=== PATIENT | male | born 1975 | race Caucasian/White ===

== ENCOUNTER 2021-04-25 13:08 | Emergency (ER) | payer BC, SELFPAY ==
[2021-04-25 13:08] VITALS: BP 171/124; PULSE 77; RESP 18; TEMP 36.7; O2SAT 99; BMI 36.5
--- NOTE | 2021-04-25 13:24 | EDS_ITS ---
HPI History of Present Illness Chief Complaint: General Illness Narrative Narrative: 45-year-old male presenting with fever, chills, cough, body aches x2 days. He has 2 children at home that both tested positive for COVID a few days ago. He thinks he has COVID-19. Patient states he did not get vaccinated because he does not believe in the science of the vaccine and he states that he would not want monoclonal antibodies. He states that the only reason he came to the emergency room was because [employer]. states that he had must have a documented positive COVID test. He states specifically he was told to come to the hospital. Patient does not report severe symptoms and is eating and drinking normally. He is making normal urine and stool. He does not have abdominal pain or chest pain. PFSH PFSH Allergy/AdvReac Type Severity Reaction Status Date / Time No Known Allergies Allergy Verified 04/25/21 13:10 ROS ROS ED Constitutional Constitutional ED: Reports chills and fever(s) Eyes Eyes: Denies blurry vision or diplopia ENT ENT ED: Reports rhinorrhea; Denies sore throat Cardiovascular Cardiovascular: Denies chest pain or palpitations Respiratory/Chest Respiratory/Chest: Reports cough and dyspnea Gastrointestinal Gastrointestinal: Denies abdominal pain, nausea or vomiting Genitourinary Genitourinary ED: Denies dysuria or hematuria Musculoskeletal Musculoskeletal: Reports myalgias; Denies arthralgias or neck pain Integumentary Denies Abrasions or rash Neurologic Neurologic: Reports headache(s); Denies paresthesias or weakness EXAM Physical Exam Const Vital Signs: 04/25/21 13:08 Temperature 98.1 F Temperature Source Temporal Pulse Rate 77 Respiratory Rate 18 Blood Pressure 171/124 H Blood Pressure Mean 139 Pulse Ox 99 Oxygen Delivery Method Room Air Positive well nourished General Appearance ED: NAD; Negative for pallor HEENT Reports moist mucous membranes Negative for trauma Eyes PERRL and EOMs intact bilaterally Neck no lymphadenopathy and supple Resp normal respiratory effort and clear to auscultation bilaterally Cardio regular rate and regular rhythm Neuro oriented x3 and CN's II-XII intact bilaterally Sensorium / Orientation: alert Skin no rashes or lesions noted and no wounds General Skin Exam: Negative for jaundice or pallor MDM MDM MDM Narrative Medical decision making narrative: 45-year-old male unvaccinated for COVID-19 with symptoms of COVID-19. He states he does not believe in the signs of the vaccine and does not want monoclonal antibodies. He states that his job made him come to the emergency room to get tested for COVID-19. I will test him with a send out PCR since he does not want any monoclonal antibody treatment. He does not need this back rapidly. He otherwise has normal vital signs. He is not hypoxic or tachypneic. His pulse ox is 99% on room air. Patient given return precautions and will quarantine the appropriate timeframe at home. Impression: 1. COVID-19 Discharge Plan Triage Chief Complaint: General Illness Other Complaint: Cold Sx ED Provider: Edwin Bravo Dx/Rx/DC Orders Instructions: Coronavirus Disease 2019 (COVID-19): Caring for Yourself or Others Disposition Disposition: Home, Self Care
== END 2021-04-25 13:55 | disposition home or self-care (01) ==
PROVIDERS: Emergency Provider Student in an Organized Health Care Education/Training Program; Visit Provider Student in an Organized Health Care Education/Training Program
DX: U07.1 COVID-19 (principal)
CPT/HCPCS: 87635; 99281; 99282; U0003; U0005

== ENCOUNTER 2021-06-25 23:44 | Emergency (ER) | payer BC, SELFPAY ==
[2021-06-25 23:46] VITALS: BP 180/124; PULSE 70; RESP 16; TEMP 36; O2SAT 100; BMI 37.8
--- NOTE | 2021-06-26 00:13 | EX.ED.UPPERE ---
HPI History of Present Illness Chief Complaint: Upper Extremity Injury Detail of Chief Complaint: Atraumatic right shoulder pain Informant: patient Onset/Context/Timing Onset: Today and Weeks Context: Gradual Onset Timing: Intermittent Quality of Pain: Aching Current Severity: Moderate Maximum Severity: Moderate Associated Symptoms Associated Symptoms: Negative for Parasthesia, Weakness and Loss of Funtion Narrative Narrative: 45-year-old male history of hypertension. States he has had atraumatic right shoulder pain. Denies any fall, injury or fever. Denies any swelling. No prior shoulder history. He is right-hand dominant. No prior surgery. Worse with movement. No redness. No swelling. Prior similar symptoms: No Recent Illness/Hospitalization: No PFSH PFSH Home Medications lisinopril-hydrochlorothiazide 1 tab PO DAILY 06/26/21 [History Last Taken Unknown] losartan 25 mg DAILY 06/26/21 [History Last Taken Unknown] orphenadrine citrate mg PO 06/26/21 [History Last Taken Unknown] Allergy/AdvReac Type Severity Reaction Status Date / Time No Known Allergies Allergy Verified 06/25/21 23:46 Social History Smoking Status: Never smoker ROS ROS ED ROS Narrative Denies recent illness. Review of Systems ROS Unobtainable: Denies due to encephalopathy Constitutional Constitutional ED: Denies fever(s) Eyes Eyes: Denies change in vision ENT ENT ED: Denies ear pain Cardiovascular Cardiovascular: Denies chest pain Respiratory/Chest Respiratory/Chest: Denies dyspnea Gastrointestinal Gastrointestinal: Denies abdominal pain, diarrhea, nausea or vomiting Genitourinary Genitourinary ED: Denies dysuria Musculoskeletal Musculoskeletal: Denies myalgias Integumentary Denies rash Neurologic Neurologic: Denies headache(s) Psychiatric Psychiatric: Denies depression Endocrine Endocrinology: Denies polyuria Hematologic/Lymphatic Hematologic/Lymphatic: Denies easy bruising Allergic/Immunologic Allergic/Immunologic ED: Denies urticaria EXAM Physical Exam Narrative Exam Narrative: 45-year-old male. Complain right shoulder pain. Vital signs stable except for his elevated blood pressure 180/124. Afebrile. H EENT exam unremarkable. Neck nontender. Lungs clear to auscultation bilaterally. Heart regular rhythm rate about 70 no murmur. Chest wall nontender. Abdomen soft nontender. Moving all 4 extremities. Neurovascularly intact. Specifically the right shoulder exam is normal. There is no specific tenderness. No swelling. No redness. He has full range of motion of the right shoulder. There is no bony deformity. There is no axillary lymphadenopathy. There is no swelling of the upper arm or forearm. He has normal 5/5 hip strength. Full range of motion of his hand, wrist, elbow and shoulder. Strong radial and ulnar pulses. No edema. No cords. Const Vital Signs: 06/25/21 23:46 Temperature 96.8 F L Temperature Source Temporal Pulse Rate 70 Respiratory Rate 16 Blood Pressure 180/124 H Blood Pressure Mean 142 Pulse Ox 100 Oxygen Delivery Method Room Air Positive well nourished, well developed and obese; Negative for cachectic, contractures or unkempt General Appearance ED: well developed and NAD; Negative for unkempt, cachectic, contractures, cyanotic or diaphoretic Nutritional Appearance: obese; Negative for cachectic HEENT Reports moist mucous membranes normocephalic and atraumatic; Negative for trauma or tenderness Eyes PERRL and EOMs intact bilaterally Neck full ROM and supple General: Negative for tenderness Chest Wall inspection of chest normal and palpation of chest normal Resp normal respiratory effort and clear to auscultation bilaterally Effort and Inspection: Negative for pain with movement Auscultation: Negative for rales, rhonchi or wheezes Cardio regular rate, regular rhythm, S1 normal heart sound, S2 normal heart sound and no murmurs GI non-tender, non-distended and no masses Auscultation: normoactive bowel sounds Palpation: soft; Negative for tender, guarding or rebound tenderness present Back/Spine no CVA tenderness General Back: Negative for CVA tenderness Cervical Spine: Negative for cervical spine tenderness Thoracic Spine / Upper Back: Negative for thoracic spinal tenderness Lumbar Spine / Lower Back: Negative for lumbar spinal tenderness or straight leg raise negative bilaterally Extremity normal to inspection and full ROM Extremity Narrative: Normal exam of his right shoulder. Normal appearance. No redness. No warmth. No swelling. Normal range of motion. No axillary lymphadenopathy. Normal upper arm. Normal forearm. Normal radial and ulnar pulses. Normal search engine optimization specialist strength. Normal range of motion of the right shoulder, elbow, wrist and hand. General Extremety ED: Negative for edema General Extremity: Negative for edema Neuro oriented x3, moves all extremities and no focal motor deficits Sensorium / Orientation: alert, oriented to person, oriented to place and oriented to time Motor Exam: strength 5/5 throughout Psych mental status grossly normal Appearance: Negative for unkempt Mood & Affect: anxious; Negative for depressed or tearful Skin General Skin Exam: Negative for petechiae Lesions: no lesions Rashes: no rashes Trauma: no lacerations or abrasions; Negative for abrasion, laceration or puncture MDM MDM MDM Narrative Medical decision making narrative: Middle-age male with atraumatic right shoulder pain with normal exam. Will be given IM Toradol. X-ray of the shoulder will be obtained. He is acute on chronic hypertension. Repeat exam at 1 AM patient saw pain is improving after his IM Toradol shot. Repeat exam his shoulder is normal. He has full range of motion. There is no signs of rotator cuff. Normal strength. No swelling or redness. No deformity. No swelling. He had I went over his x-ray and his exam. He is comfortable being discharged home. The nurses will recheck a blood pressure prior to discharge. Radiography Diagnostic Testing: Right shoulder x-ray interpreted by myself shows Discharge Plan Triage Chief Complaint: Upper Extremity Injury ED Provider: Michael Sadler Dx/Rx/DC Orders Clinical Impression: Acute pain of right shoulder, Chronic hypertension Instructions: ED Shoulder Pain, Uncertain Cause Prescriptions: No Action lisinopril-hydrochlorothiazide 20-12.5 mg tablet 1 tab PO DAILY RF: 0 losartan 25 mg tablet 25 mg DAILY RF: 0 orphenadrine citrate 100 mg tablet extended release PO RF: 0 Referrals: KIMBERLY MOJICA [Other] Activity Restrictions/Additional Instructions: Ice and heat to your shoulder to decrease inflammation and relax the muscles. Motrin for pain and inflammation and Tylenol for pain. Call and follow-up with your doctor if not improving. Return if fever, redness or swelling. Today your exam and x-ray are normal. I think this is musculoskeletal pain and should improve. Watch your blood pressure over the next several days. Take your medications as prescribed. Disposition Disposition: Home, Self Care
[2021-06-26] MEDS: Ketorolac 60 MG/2 ML Vial IM (00:19)
--- NOTE | 2021-06-26 00:25 | RAD_ITS ---
STUDY: X-RAY - RIGHT SHOULDER REASON FOR EXAM: Male, 45 years old. atraumatic pain TECHNIQUE: 4 view(s) of the shoulder. COMPARISON: None. FINDINGS: Normal glenohumeral articulation. Normal acromioclavicular joint. Normal acromion. Normal humeral head and visualized proximal humerus. The soft tissue structures are unremarkable. Normal visualized pulmonary apex. RAD/Shoulder min 2 Views IMPRESSION: No fracture or dislocation. Electronically Signed: Sudhir Burroughs MD at 0:52 EDT ,
[2021-06-26 01:02] VITALS: BP 161/124
[2021-06-26] MEDS: Lisinopril 10 MG Tablet PO (01:52)
[2021-06-26 02:14] VITALS: BP 155/118; PULSE 78
[2021-06-26 02:31] VITALS: BP 155/117
== END 2021-06-26 02:31 | disposition home or self-care (01) ==
PROVIDERS: Emergency Provider Emergency Medicine; Visit Provider Emergency Medicine
DX: M25.511 Pain in right shoulder (principal); I10 Essential (primary) hypertension; E66.9 Obesity, unspecified; Z79.899 Other long term (current) drug therapy
CPT/HCPCS: 73030; 96372; 99282; A4216